=== PATIENT | male | born 1950 | race Caucasian/White ===

== ENCOUNTER 2019-04-13 09:18 | Inpatient (IN) | payer MEDICARE, BC ==
[~2019-04-13] VITALS: Ht 170.2 cm; Wt 106.6 kg
--- NOTE | ~2019-04-13 | OP ---
[address] [address] OPERATIVE REPORT Name: DAREK GORDON Room: [address] IN M.R.#: [id number] Admission: 04/13/19 Attend Phys: Camilo Gan MD Discharge: Date of : 50 Report #: [id number] THIS REPORT FOR: //name// CC: Camilo Gan FAM physician/PCP Thai Villanueva DO DATE OF SERVICE: 04/15/2019 REFERRING PHYSICIAN: Dr. Thai Villanueva. PREOPERATIVE DIAGNOSES: Symptomatic cholelithiasis and choledocholithiasis, status post endoscopic retrograde cholangiopancreatography. POSTOPERATIVE DIAGNOSES: Symptomatic cholelithiasis and choledocholithiasis, status post endoscopic retrograde cholangiopancreatography. PROCEDURE: Laparoscopic cholecystectomy with immunofluorescence imaging. SURGEON: Siddhartha Padilla DO FORK OPERATOR: Dr. Fern Mason. ANESTHESIA: General endotracheal. ESTIMATED BLOOD LOSS: Less than 20 mL. COMPLICATIONS: None. DESCRIPTION OF PROCEDURE: After obtaining proper consents and discussing risks and complications with the patient as well as discussing risks and complications as well as giving the patient ICG dye in the preoperative holding area, he was taken to the operating room and laid on the supine position, administered general endotracheal anesthetic. He was then prepped and draped in the usual sterile fashion. A timeout was performed. We confirmed the appropriate patient and procedure. Preoperative antibiotics had been given. SCDs were in place. All necessary equipment was within the operating room. I then made a small supraumbilical skin incision with a #11 scalpel blade. This was carried down through the skin and the subcutaneous tissue using electrocautery for hemostasis. Once the fascia was encountered, it was incised along the midline, grasped and elevated with Karine clamps and the peritoneum was then bluntly opened using a hemostat. 2-0 Vicryl sutures were then placed in a hsyiba-ek-yjdqy fashion to secure the Hollie trocar, which was then inserted and insufflation was begun. Once insufflation was complete, full visual inspection of the anterior abdominal organs was performed. This revealed a fatty-appearing liver. There was a large amount of omental fat. [place] [address] OPERATIVE REPORT Name: DAREK GORDON Room: [address] IN [facility]#: [id number] Admission: 04/13/19 Attend Phys: Camilo Gan MD Discharge: Date of : 50 Report #: [id number] distended and was covering the liver and gallbladder. We did place the patient in steep reverse Trendelenburg position, which allowed the transverse colon to move down slightly and then rotated him to the left. I then placed another 5 mm trocar in the subxiphoid position. Two 5 mm trocars were placed in the right flank. I was then able to grasp and elevate the gallbladder. The omental adhesions to the gallbladder were taken down using blunt dissection as well as electrocautery to maintain hemostasis. Once I identified Paloma's pouch I grasped and elevated it. We then used immunofluorescence imaging to identify the cystic duct, common hepatic duct and common bile duct. This was somewhat difficult as there was quite a bit of fat surrounding, but I was able to easily see the cystic duct as it coursed directly into the gallbladder before I started dissecting the hepatoduodenal ligament. I then dissected the hepatoduodenal ligament down from the gallbladder using a [place] dissector and blunt dissection. We then dissected the cystic duct completely free. We again used immunofluorescence imaging to assure that this was going directly into the gallbladder. I also identified the common hepatic duct using immunofluorescence imaging. I then dissected the cystic artery free. We obtained a critical view of safety and then clipped the cystic duct proximally and distally and then the cystic artery was also clipped proximally and distally and then both were divided. I then removed the gallbladder from the liver bed using electrocautery. Once this was complete, we checked the cystic duct and cystic artery stumps and liver bed for any leak or bleeding, there was none identified. The gallbladder was placed into an Endopouch. The liver bed also appeared dry. I did copiously irrigate to assure hemostasis as well. I then placed the patient back into regular supine position. The insufflation was stopped, all air was released and the trocars were removed. The gallbladder was removed through the umbilical incision. We did have to enlarge the fascia of the umbilical incision in order to get the gallbladder out. I then closed the umbilical fascia using 5 interrupted 0 Vicryl sutures in a ijjjmm-ye-xpzji fashion. The subcutaneous tissue of the umbilical incision was closed using 3-0 Vicryl suture. Skin incisions were all injected with 0.5% Marcaine without epinephrine and closed using 4-0 Monocryl subcuticular stitches. Mastisol, Steri-Strips, sterile OpSite and pressure dressings were placed. The patient was awakened in the operating room and transported to recovery room in stable condition. By: 05 29Siddhartha Padilla DO /jemima
[2019-04-13 09:22] VITALS: BP 120/48
[2019-04-13] MEDS ORDERED: METFORMIN HCL500 MG PO (09:28)
[2019-04-13] MEDS ORDERED: CRESTOR20 MG PO (09:29)
[2019-04-13] MEDS ORDERED: INDERAL LA60 MG PO (09:29)
[2019-04-13] MEDS ORDERED: FLOMAX0.4 MG PO (09:29)
[2019-04-13] MEDS ORDERED: PROTONIX40 M1 PO (09:30)
[2019-04-13] MEDS ORDERED: IBUPROFEN 800800 M1 PO (09:30)
[2019-04-13] MEDS ORDERED: VITAMIN B-12500 MCG PO (09:30)
[2019-04-13] MEDS ORDERED: COQ-10100 MG PO (09:31)
[2019-04-13] MEDS ORDERED: BAYER CHEWABLE81 MG PO (09:31)
[2019-04-13] MEDS ORDERED: VITAMIN D3400 UNIT PO (09:32)
[2019-04-13 10:07] LABS: HEMOGLOBIN 14.7 gm/dL (14.0-18.0); MCH 31.1 pg (26.0-34.0); MCHC 33.4 g/dL (28.0-37.0); MCV 93.1 fL (80.0-100.0); MPV 9.1 fl. (7.2-11.1); NUCLEATED RBCS 0 /100WBC; PLATELET COUNT* 165 thou/uL (150-400); RBC 4.72 mil/uL (4.50-6.00); RDW-CV 14.6 % (10.5-14.5); WBC 12.8 thou/uL (4.0-11.0)
[2019-04-13 10:13] LABS: URINE BLOOD 1+ (Negative); URINE CLARITY CLEAR; URINE COLOR DARK YELLOW; URINE GLUCOSE-RANDOM 2+ (Negative); URINE KETONES 1+ (Negative); URINE LEUKOCYTES-REFLEX NEGATIVE (Negative); URINE NITRITE-REFLEX NEGATIVE (Negative); URINE PROTEIN 1+ (Negative); URINE SPECIFIC GRAVITY >= 1.030 (1.005-1.030)
[2019-04-13 10:14] LABS: CALCIUM 8.5 mg/dL (8.5-10.1); POTASSIUM 3.7 mmol/L (3.5-5.1)
[2019-04-13 10:18] LABS: ICTOTEST (BILI CONFIRMATORY) Positive (Negative); URINE BILIRUBIN 3+ (Negative)
[2019-04-13 10:23] LABS: ALBUMIN 3.4 g/dL (3.4-5.0); TOTAL BILIRUBIN 5.9 mg/dL (<0.1-1.0); TOTAL PROTEIN 6.5 g/dL (6.4-8.2); TROPONIN-I LEVEL 0.14 ng/mL (<0.06)
[2019-04-13 10:28] LABS: SQUAMOUS >10 Many /LPF (0-3)
[2019-04-13 10:29] LABS: BACTERIA-REFLEX 1-9 Few /HPF (None Seen); CASTS None Seen /LPF (None Seen); CRYSTALS None Seen /LPF (None Seen); MUCUS >6 Heavy strn/LPF (None Seen); URINE RBC 0-2 Rare /HPF (0-2); URINE WBC-REFLEX 0-5 Rare /HPF (0-5)
--- NOTE | 2019-04-13 11:11 | NUR ---
JOLANTA NOTIFIED UPON PT RETURN FROM CT. PT CONNECTED TO BP AND PULSE OX MONITOR
[2019-04-13 11:27] LABS: ABSOLUTE EOSINOPHILS 0.1 thou/uL (0.0-0.7); ABSOLUTE LYMPHOCYTES 0.4 thou/uL (0.8-5.3); ABSOLUTE MONOCYTES 0.6 thou/uL (0.0-1.2); ABSOLUTE NEUTROPHILS 11.6 thou/uL (1.6-8.1); PLATELET ESTIMATE ADEQUATE
[2019-04-13 11:28] LABS: BURR CELLS Occasional; LARGE PLATELETS OCCASIONAL; SCHISTOCYTES Occasional
[2019-04-13 11:29] LABS: ANISOCYTOSIS 1+
--- NOTE | 2019-04-13 14:28 | EKG ---
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 : 1950 Requested By: Judy Ann Order Number: [id number] Josue MD: Raman Mendoza Measurements Intervals [place] Rate: 56 P: -3 NV: 175 QRS: -32 QRSD: 113 T: -31 QT: 389 QTc: 376 Interpretive Statements Sinus bradycardia nonspecific t wave changes Probable left atrial enlargement Incomplete right bundle branch block Abnormal R-wave progression, late transition Baseline wander in lead(s) I,II,aVR,V2 No previous ECG available for comparison Electronically Signed On 04-13-2019 14:28:04 CDT by Raman Mendoza [email or web address] <ELECTRONICALLY SIGNED> By: Raman Mendoza MD, [facility] 04/13/19 1428 1006 1006 Raman Mendoza MD, [facility] /EPI
--- NOTE | 2019-04-13 14:29 | EKG ---
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1950 Requested By: Judy Ann Order Number: [id number] MD: Raman Mendoza Measurements Intervals [place] Rate: 51 P: 17 GA: 193 QRS: -42 QRSD: 113 T: -25 QT: 451 QTc: 416 Interpretive Statements Sinus rhythm Left anterior fascicular block Abnormal R-wave progression, late transition Borderline T abnormalities, diffuse leads Baseline wander in lead(s) V2 Electronically Signed On 04-13-2019 14:29:37 CDT by Raman Mendoza [email or web address] <ELECTRONICALLY SIGNED> By: Raman Mendoza MD, [facility] 04/13/19 1429 1148 1148 Raman Mendoza MD, [facility] /EPI
[2019-04-13 16:02] VITALS: BP 112/52
[2019-04-13 17:50] VITALS: BP 104/47
[2019-04-13 20:00] VITALS: BP 140/62
--- NOTE | 2019-04-13 20:00 | NUR ---
RECEIVED REPORT AND ASSUMED CARE OF PT, ASSESSMENT COMPLETED. SEE ADMISSION ASSESSMENT AND HX. DENIES ABD PAIN OR NAUSEA AT THIS TIME. TELEMETRY ON SHOWING SB. WILL CONT TO MONITOR AND ASSIST NEEDED.
[2019-04-14 00:15] VITALS: BP 118/42
[2019-04-14 04:47] VITALS: BP 141/56
[2019-04-14 05:37] LABS: ABSOLUTE EOSINOPHILS 0.2 thou/uL (0.0-0.7); ABSOLUTE LYMPHOCYTES 0.9 thou/uL (0.8-5.3); ABSOLUTE NEUTROPHILS 5.6 thou/uL (1.6-8.1); BASOPHILS 0.5 %; EOSINOPHILS 2.3 %; HEMATOCRIT 41.6 % (42.0-52.0); HEMOGLOBIN 13.8 gm/dL (14.0-18.0); LYMPHOCYTES 11.3 %; MCH 30.8 pg (26.0-34.0); MCHC 33.2 g/dL (28.0-37.0); MCV 92.7 fL (80.0-100.0); MONOCYTES 13.1 %; MPV 8.9 fl. (7.2-11.1); NUCLEATED RBCS 0 /100WBC; PLATELET COUNT* 154 thou/uL (150-400); POLYS 72.8 %; RBC 4.48 mil/uL (4.50-6.00); RDW-CV 14.5 % (10.5-14.5); WBC 7.7 thou/uL (4.0-11.0)
[2019-04-14 05:58] LABS: ALBUMIN 2.9 g/dL (3.4-5.0); CALCIUM 8.1 mg/dL (8.5-10.1); MAGNESIUM 1.9 mg/dL (1.8-2.4); PHOSPHORUS* 1.8 mg/dL (2.5-4.9); POTASSIUM 3.8 mmol/L (3.5-5.1); TOTAL BILIRUBIN 7.5 mg/dL (<0.1-1.0); TOTAL PROTEIN 5.9 g/dL (6.4-8.2)
--- NOTE | 2019-04-14 06:48 | NUR ---
SLEPT WELL TONIGHT. GAIT STEADY TO AND FROM BATHROOM. DENIES PAIN OR NAUSEA TONIGHT. NPO SINCE [place] FOR POSS SURGERY. HS GOALS OF REST AND SAFETY ACHIEVED. HOURLY ROUNDING OBSERVED.
[2019-04-14 08:00] VITALS: BP 145/72
[2019-04-14 09:07] LABS: GLYCOHEMOGLOBIN (HGB A1C) 5.6 % (4.8-5.6)
--- NOTE | 2019-04-14 10:56 | NUR ---
Pt out of room for MRCP, will f/u later
[2019-04-14 12:47] VITALS: BP 148/68
--- NOTE | 2019-04-14 17:09 | 2DMMODE ---
[place] [address] 2 D/M-MODE ECHOCARDIOGRAM Name: DAREK GORDON Room: [address] IN [facility]#: [id number] Admission: 04/13/19 Attend Phys: Camilo Gan, Discharge: Date of : 50 Date of Service: 04/14/19 1709 Report #: [id number] THIS REPORT FOR: //name// APPROVED REPORT Study performed: 04/14/2019 14:27:18 EXAM: Comprehensive 2D, Doppler, and color-flow Echocardiogram Patient Location: In-Patient Room #: 220 Status: routine BSA: 1.96 HR: 45 bpm BP: 145/72 mmHg Rhythm: NSR Other Information Study Quality: Good Indications CAD 2D Dimensions IVSd: 10.74 (7-11mm) LVOT Diam: 23.64 (18-24mm) LVDd: 50.86 mm PWd: 11.28 (7-11mm) Ascending Ao: 32.48 (22-36mm) LVDs: 26.47 (25-40mm) Aortic Root: 35.17 mm Volumes Left Atrial Volume (Systole) LA ESV Index: 33.90 mL/m2 Aortic Valve AoV Peak Micah.: 1.23 m/s AO Peak Gr.: 6.04 mmHg LVOT Max P.14 mmHg AO Mean Gr.: 2.92 mmHg LVOT Mean P.72 mmHg LVOT Max V: 1.02 m/s AO V2 VTI: 30.06 cm LVOT Mean V: 0.58 m/s LUIS (VTI): 3.89 cm2 LVOT V1 VTI: 26.66 cm Mitral Valve E/A Ratio: 1.56 MV Decel. Time: 207.19 ms MV E Max Micah.: 0.99 m/[place] [address] 2 D/M-MODE ECHOCARDIOGRAM Name: DAREK GORDON Room: [address] IN .R.#: [id number] Admission: 04/13/19 Attend Phys: Camilo Gan, Discharge: Date of : 50 Date of Service: 04/14/19 1709 Report #: [id number] MV PHT: 60.09 ms MVA (PHT): 3.66 cm2 TDI E/Lateral E': 9.00 E/Medial E': 9.00 Medial E' Micah.: 0.11 m/s Lateral E' Micah.: 0.11 m/s Pulmonary Valve PV Peak Micah.: 0.91 m/s PV Peak Gr.: 3.29 mmHg Tricuspid Valve RAP Estimate: 5.00 mmHg TR Peak Gr.: 31.34 mmHg RVSP: 36.00 mmHg PA Pressure: 36.00 mmHg Left Ventricle The left ventricle is normal size. There is normal LV segmental wall motion. There is normal left ventricular wall thickness. Left ventricular systolic function is normal. The left ventricular ejection fraction is within the normal range. LVEF is 55%. Grade I - abnormal relaxation pattern. Right Ventricle The right ventricle is normal size. The right ventricular systolic function is normal. Atria The left atrium size is normal. The right atrium size is normal. Aortic Valve The aortic valve is normal in structure. No aortic regurgitation is present. There is no aortic valvular stenosis. Mitral Valve The mitral valve is normal in structure. Trace mitral regurgitation. No evidence of mitral valve stenosis. Tricuspid Valve The tricuspid valve is normal in structure. Trace tricuspid regurgitation. Mild pulmonary hypertension. Pulmonic Valve The pulmonary valve is normal in structure. Mild [place] [address] 2 D/M-MODE ECHOCARDIOGRAM Name: DAREK GORDON Room: [address] IN [facility]#: [id number] Admission: 04/13/19 Attend Phys: Camilo Gan, Discharge: Date of : 50 Date of Service: 04/14/19 1709 Report #: [id number] Great Vessels The aortic root is normal in size. IVC is normal in size and collapses >50% with inspiration. Pericardium There is no pericardial effusion. <Conclusion> LVEF is 55%. There is normal LV segmental wall motion. There is no aortic valvular stenosis. No aortic regurgitation is present. Trace mitral regurgitation. Mild pulmonic regurgitation. Grade I - abnormal relaxation pattern. <ELECTRONICALLY SIGNED> By: Popeye Wood MD, FACC 04/14/19 170 08 08 Popeye Wood MD, FACC /INF
--- NOTE | 2019-04-14 18:54 | NUR ---
JAUN RESTING IN BED. UP AD DELBERT IN ROOM. ERCP AND MRCP COMPLETED TODAY, CHOLYCYSTECTOMY SCHEDULED FOR 11:00 TOMORROW. VITAL SIGNS STABLE. PATIENT IN NO APPARENT SIGNS OF DISTRESS AT THIS TIME. HOURKLY ROUNDING COMPLETED FOR PATIET SAFETY
[2019-04-14 19:45] VITALS: BP 102/60
--- NOTE | 2019-04-14 20:00 | NUR ---
RECEIVED REPORT AND ASSUMED CARE OF PT, ASSESSMENT COMPLETED. PT IS JAUNDICE IN COLOR. DENIES ABD PAIN OR NAUSEA. DISCUSSED SURGERY AND NPO TONIGHT. TELEMETRY ON SHOWING SB. WILL CONT TO MONITOR AND ASSIST NEEDED.
[2019-04-15] VITALS: BP 115/49
[2019-04-15 04:00] VITALS: BP 123/57
[2019-04-15 05:07] LABS: ABSOLUTE LYMPHOCYTES 0.8 thou/uL (0.8-5.3); ABSOLUTE MONOCYTES 0.7 thou/uL (0.0-1.2); ABSOLUTE NEUTROPHILS 6.3 thou/uL (1.6-8.1); BASOPHILS 0.2 %; EOSINOPHILS 0.1 %; HEMATOCRIT 41.2 % (42.0-52.0); HEMOGLOBIN 14.1 gm/dL (14.0-18.0); MCH 31.9 pg (26.0-34.0); MCHC 34.3 g/dL (28.0-37.0); MCV 92.9 fL (80.0-100.0); MONOCYTES 8.9 %; MPV 9.1 fl. (7.2-11.1); NUCLEATED RBCS 0 /100WBC; PLATELET COUNT* 167 thou/uL (150-400); POLYS 80.8 %; RBC 4.44 mil/uL (4.50-6.00); RDW-CV 14.7 % (10.5-14.5); WBC 7.8 thou/uL (4.0-11.0)
[2019-04-15 05:41] LABS: ALBUMIN 2.7 g/dL (3.4-5.0); CALCIUM 8.8 mg/dL (8.5-10.1); MAGNESIUM 1.9 mg/dL (1.8-2.4); POTASSIUM 4.3 mmol/L (3.5-5.1); TOTAL PROTEIN 6.3 g/dL (6.4-8.2)
--- NOTE | 2019-04-15 06:39 | NUR ---
SLEPT WELL TONIGHT. NPO SINCE [place] FOR SURGERY TODAY. DENIES NAUSEA OR ABD PAIN. NO CHANGE IN ASSESSMENT. GOALS OF REST AND SAFETY ACHIEVED. HOURLY ROUNDING OBSERVED.
[2019-04-15 08:00] VITALS: BP 124/53
[2019-04-15 12:05] VITALS: BP 130/58
[2019-04-15 20:20] VITALS: BP 134/62
[2019-04-16 00:07] VITALS: BP 120/62
[2019-04-16 04:18] VITALS: BP 125/48
--- NOTE | 2019-04-16 06:35 | NUR ---
PT TO FLOOR APPROX 2014 AND ASSUMED CARE FROM PACU. ASSESSMENT COMPLETED CHARTED. VSS. SEE MAR. SEE CHARTING. HOURLY ROUNDING FOR SAFETY.
[2019-04-16 08:00] VITALS: BP 103/65; BP 146/66
[2019-04-16 08:55] LABS: CALCIUM 8.4 mg/dL (8.5-10.1); CREATININE 1.1 mg/dL (0.6-1.3); POTASSIUM 4.1 mmol/L (3.5-5.1); TOTAL BILIRUBIN 1.5 mg/dL (<0.1-1.0); TOTAL PROTEIN 6.6 g/dL (6.4-8.2)
[2019-04-16 12:00] VITALS: BP 103/65
--- NOTE | 2019-04-16 13:41 | NUR ---
ORDER RECEIVED TO DISCHARE PATIENT HOMWE TO SELF CARE. WOUND CARE AND DIETARY ORDERS GIVEN TO PATIENT. MED REC, MEDICATION EDUCATION, STROKE EDUCATION, AND NEED FOR FOLLOW UP WITH HIS PRIMARY CARE PROVIDER COVERED AND STATED UNDERSTOOD BY PATIENT. IV AND TELEMETRY PACK REMOVED. JAUN CHOSE TO AMBUILATE TO AWAITING CAR ON DISCHARGE. i WALKED WITH HIM AND HIS SPOUSE, PATIENT WAS IN NO APPARENT SIGNS OF DISTRESS AT TIME OF DISCHARGE. DISCHARGE TIME OF 13:40.
--- NOTE | 2019-04-19 09:11 | PATH ---
[facility] [address] [place] [address] PATHOLOGY RPT PROCEDURE Name: DAREK CHAVARRIA Room: [address] IN M.R.#: [id number] Admission: 04/13/19 Date of : 50 Discharge: 04/16/19 Report #: [id number] Path Case #: [id number] [facility] Accession Number: [id number] . 01 Material submitted: . gallbladder - GALLBLADDER . 01 Clinical history: . Acute cholecystitis . 02 Diagnosis: Gallbladder, cholecystectomy: - Acute and chronic cholecystitis. - Cholelithiasis. - Cystic duct lymph node with mild fatty change. (SKM:cyn/shi; 04/18/2019) MBR/04/18/2019 . 02 Electronically signed: . Jean Haque MD, Pathologist NPI- [id number] . 01 Gross description: . The specimen is received in formalin, labeled "Darek Chavarria, gallbladder", is intact gallbladder measuring 9.4 cm in length and 4.0 cm in maximum diameter with a yellow-garcia, glistening serosa. A 1.0 x 0.9 x 0.6 cm soft lymph node is identified in the region of the gallbladder neck. The cystic duct is patent. The gallbladder lumen contains yellow-green, viscous bile and three multifaceted dark brown, friable calculus material measuring 1.5 x 1.5 x 0.8 cm in aggregate. The mucosa is velvety green with no cholesterolosis. The wall is 0.2 cm in average thickness. Recording Artist tissue is submitted in A1. (SWS; 04/17/2019) SHS/SHS . 02 Pathologist provided ICD-10: K80.12 . 02 CPT . 732821 Specimen Comment: A courtesy copy of this report has been sent to Specimen Comment: [phone], . Specimen Comment: Report sent to / DR GAMING Performed at: [address] [id number] MD Aldo Muñoz MD Phone: [phone] Performed at: [address] [place] [address] PATHOLOGY RPT PROCEDURE Name: DAREK CHAVARRIA Room: [address] IN M.R.#: [id number] Admission: 04/13/19 Date of : 50 Discharge: 04/16/19 Report #: [id number] Path Case #: [id number] [address] PEPE Dominguez [id number] MD Jose Sterling MD Phone: [phone]
== END 2019-04-16 13:40 | disposition home or self-care (01) | DRG 417 ==
LOC: M.ERS 09:18 → M.2W 12:03 → M.TBA-ER 12:03 → M.2W 18:09
PROVIDERS: Personal Emergency Response Attendant; Surgery; ADMIT Internal Medicine
PROC: 0DJ08ZZ Inspection of Upper Intestinal Tract, Via Natural or Artificial Opening Endoscopic (ICD-10-PCS; principal; 2019-04-14)
PROC: 0FC98ZZ Extirpation of Matter from Common Bile Duct, Via Natural or Artificial Opening Endoscopic (ICD-10-PCS; principal; 2019-04-14)
PROC: 0FT44ZZ Resection of Gallbladder, Percutaneous Endoscopic Approach (ICD-10-PCS; 2019-04-15)
DX: K80.63 Calculus of gallbladder and bile duct with acute cholecystitis with obstruction (principal); R65.11 Systemic inflammatory response syndrome (SIRS) of non-infectious origin with acute organ dysfunction; N40.0 Benign prostatic hyperplasia without lower urinary tract symptoms; K21.9 Gastro-esophageal reflux disease without esophagitis; E80.6 Other disorders of bilirubin metabolism; R74.0 Nonspecific elevation of levels of transaminase and lactic acid dehydrogenase [LDH]; E86.0 Dehydration; E11.9 Type 2 diabetes mellitus without complications; I25.10 Atherosclerotic heart disease of native coronary artery without angina pectoris; F41.9 Anxiety disorder, unspecified; E78.5 Hyperlipidemia, unspecified; I25.2 Old myocardial infarction; Z95.5 Presence of coronary angioplasty implant and graft; Z79.82 Long term (current) use of aspirin; Z79.84 Long term (current) use of oral hypoglycemic drugs